=== PATIENT | male | born 1965 | race Caucasian/White ===

== ENCOUNTER → 2024-05-01 09:49 | Outpatient (CLI) | payer OTHER, SELFPAY ==
--- NOTE | 2024-05-01 09:53 | DI.RAD.S_ITS ---
PROCEDURE: XR CHEST 2V INDICATIONS: SHORTNESS OF BREATH TECHNIQUE: 2 views of the chest were acquired. COMPARISON: None. FINDINGS: Surgical changes and devices: None. Lungs and pleura: No consolidation. Prominent pulmonary markings. No pleural effusions or pneumothorax. Mediastinum: Mediastinal contours are normal. Heart size is normal. Bones and chest wall: No suspicious bony abnormalities. Soft tissues appear unremarkable. IMPRESSION: Question pulmonary vasculature engorgement. No consolidation. Dictated by: Eleno Squires M.D. on 05/01/2024 at 19:07 Approved by: Eleno Squires M.D. on 05/01/2024 at 19:11
== END ==
LOC: RESP 09:51
PROVIDERS: Referring Provider Chiropractor; Visit Provider Chiropractor
DX: R06.02 Shortness of breath (principal); Z87.891 Personal history of nicotine dependence
CPT/HCPCS: 71046; 94060